=== PATIENT | male | born 1950 | race Caucasian/White ===

== ENCOUNTER → 2019-06-03 | Outpatient (CLI) | payer OTHER | LOC: CAT 08:29 | DX: Z13.6 Encounter for screening for cardiovascular disorders (principal); E78.00 Pure hypercholesterolemia, unspecified; I25.10 Atherosclerotic heart disease of native coronary artery without angina pectoris ==

== ENCOUNTER → 2021-03-21 | Outpatient (CLI) | payer OTHER | LOC: ULTRA 07:50 | PROVIDERS: ATTEND Family Medicine | DX: E83.52 Hypercalcemia (principal); E78.5 Hyperlipidemia, unspecified; E78.2 Mixed hyperlipidemia ==